=== PATIENT | female | born 1985 | race Caucasian/White ===

== ENCOUNTER 2020-03-19 18:35 | Emergency (ER) | payer MEDICAID ==
[~2020-03-19] VITALS: Ht 165.1 cm; Wt 80.7 kg
[2020-03-19] MEDS ORDERED: LISI40TA4 PO (18:57)
--- NOTE | 2020-03-19 19:28 | NUR ---
Pt out of ER for CT.
--- NOTE | 2020-03-19 19:38 | NUR ---
Pt back to ER from CT.
[2020-03-19 20:03] LABS: BASOPHILS # (AUTO) 0.1 K/uL (0.0-8.0); BASOPHILS % (AUTO) 1.3 % (0.0-2.0); EOSINOPHILS # (AUTO) 0.1 K/uL (0.0-0.7); EOSINOPHILS % (AUTO) 1.2 % (0.0-7.0); HEMATOCRIT 40.6 % (31.2-41.9); HEMOGLOBIN 13.7 g/dL (10.9-14.3); LYMPHOCYTES # (AUTO) 2.7 K/uL (20.0-40.0); LYMPHOCYTES % (AUTO) 33.5 % (20.5-51.5); MEAN CORPUSCULAR HEMOGLOBIN 30.6 uug (24.7-32.8); MEAN CORPUSCULAR HGB CONC 34 g/dL (32.3-35.6); MEAN CORPUSCULAR VOLUME 90.9 fL (75.5-95.3); MONOCYTES # (AUTO) 0.5 K/uL (2.0-10.0); MONOCYTES % (AUTO) 6.6 % (0.0-11.0); NEUTROPHILS # (AUTO) 4.5 K/uL (1.8-8.9); NEUTROPHILS % (AUTO) 57.4 % (38.5-71.5); PLATELET COUNT (AUTO) 381 K/uL (179-408); RED BLOOD CELL COUNT(AUTO) 4.47 MIL/uL (3.63-4.92); WHITE BLOOD COUNT (AUTO) 7.9 K/uL (3.8-11.8)
[2020-03-19 20:15] LABS: CREATININE 0.9 mg/dL (0.6-1.3); POTASSIUM 3.9 mmol/L (3.5-5.1)
[2020-03-19 20:22] LABS: BILIRUBIN,DIRECT 0.1 mg/dL (0.0-0.2); BILIRUBIN,TOTAL 0.2 mg/dL (0.2-1.0); TOTAL PROTEIN, SERUM 7.1 g/dL (6.4-8.2)
[2020-03-19] MEDS ORDERED: IBUPROFEN 600 MG TABLET PO ONE (22:30)
[2020-03-19] MEDS ORDERED: IBUPROFEN 600 MG TABLET ONE (22:46)
--- NOTE | 2020-03-19 22:52 | NUR ---
Patient discharged to home in stable condition. Written and verbal after care instructions given. Patient verbalizes understanding of instructions. Stressed follow up or return to ER for worsening s/s. Patient out of ER with steady gait, no acute signs of distress, VSS, all belongings taken, provided a copy of diagnostic procedures, IV site discontinued.
[2020-03-19 22:54] VITALS: BP 131/94
== END 2020-03-19 22:55 | disposition home or self-care (01) ==
LOC: ER 18:43
DX: R51.9 Headache, unspecified (principal); R07.89 Other chest pain; M79.602 Pain in left arm; I10 Essential (primary) hypertension; R94.31 Abnormal electrocardiogram [ECG] [EKG]
CPT/HCPCS: 36415; 70030-TC; 70450; 71045; 85025; 85730; 93005; A4663

== ENCOUNTER 2020-12-04 15:39 | Emergency (ER) | payer MEDICAID, OTHER ==
[~2020-12-04] VITALS: Ht 165.1 cm; Wt 81.6 kg
[~2020-12-04 15:39] MED LIST: LISI40TA13 PO
--- NOTE | 2020-12-04 16:24 | NUR ---
Patient discharged to home in stable condition. Written and verbal after care instructions given. Patient verbalizes understanding of instructions. Stressed follow up or return to ER for worsening s/s.
== END 2020-12-04 16:35 | disposition home or self-care (01) ==
LOC: ER 15:45
DX: M25.561 Pain in right knee (principal)
CPT/HCPCS: A4663